=== PATIENT | female | born 2000 | race Two or more races ===

== ENCOUNTER 2018-02-20 22:16 | Outpatient (CLI) | payer OTHER ==
[2018-02-20] MEDS ORDERED: PRENATAL TABLE1 EAC1 PO (22:36)
[2018-02-20] MEDS ORDERED: PEPCID20 MG PO (22:37)
[2018-02-20] MEDS ORDERED: ZOFRAN8 MG PO (22:38)
[2018-02-21] MEDS ORDERED: MACROBID 100 M100 MG PO (16:14)
[2018-02-21] MEDS ORDERED: PROTONIX40 MG PO (16:14)
== END 2018-02-21 17:40 | disposition home or self-care (01) ==
LOC: LDR 22:16 → OBS/DEL 22:16 → LDR 22:19 → OBS/DEL 02-21 07:58
DX: O21.8 Other vomiting complicating pregnancy (principal); Z34.83 Encounter for supervision of other normal pregnancy, third trimester

== ENCOUNTER 2018-03-29 09:08 | Inpatient (IN) | payer OTHER ==
[~2018-03-29] VITALS: Ht 160 cm; Wt 71.7 kg
[~2018-03-29 09:08] MED LIST: MACROBID 100 M100 MG PO; PEPCID20 MG PO; PRENATAL TABLE1 EAC1 PO; PROTONIX40 MG PO; ZOFRAN8 MG PO
[2018-04-01] MEDS ORDERED: PREPLUS CA-FE1 EACH PO (15:18)
[2018-04-01] MEDS ORDERED: NAPR500T14 PO (15:18)
== END 2018-04-01 15:26 | DRG 766 ==
LOC: OB/GYN 09:08 → LDR 09:08 → O/R 09:08 → OB/GYN 17:52
PROVIDERS: Specialist
PROC: 4A033R1 Measurement of Arterial Saturation, Peripheral, Percutaneous Approach (ICD-10-PCS; 2018-03-29)
PROC: 4A1HXCZ Monitoring of Products of Conception, Cardiac Rate, External Approach (ICD-10-PCS; 2018-03-29)
PROC: 10D00Z1 Extraction of Products of Conception, Low, Open Approach (ICD-10-PCS; principal; 2018-03-29 17:00)
DX: O69.81X0 Labor and delivery complicated by cord around neck, without compression, not applicable or unspecified (principal); Z3A.36 36 weeks gestation of pregnancy; Z37.0 Single live birth

== ENCOUNTER 2023-12-12 21:16 | Emergency (ER) | payer OTHER ==
[~2023-12-12] VITALS: Ht 170.2 cm; Wt 83.5 kg
[~2023-12-12 21:16] MED LIST changes: +NAPR500T14 PO; +PREPLUS CA-FE1 EACH PO
[2023-12-12] MEDS ORDERED: KEPPRA750 MG PO (21:27)
[2023-12-12] MEDS ORDERED: JANTOVEN5 MG PO (21:27)
[2023-12-12] MEDS ORDERED: LACOSAMIDE10 MG/1 ML PO (21:27)
[2023-12-12 22:10] LABS: HEMATOCRIT 35.2 % (36.0-45.00); HEMOGLOBIN 12.3 g/dL (12.0-15.00); MEAN CELL VOLUME 90.7 fL (80.00-100.00); MEAN CORPUSCULAR HEMOGLOBIN 31.8 pg (27.00-32.0); PLATELET COUNT 237 K/uL (150-450); RED BLOOD COUNT 3.88 M/uL (4.00-6.00); RED CELL DISTRIBUTION WIDTH 12.6 % (11.5-14.5)
[2023-12-12 22:24] LABS: ABG PH 7.435 (7.35-7.45); ABG PO2 117.7 mmHg (80-100); ABG pCO2 34.4 mmHg (35-45); BICARBONATE 22.6 mmol/l (23-25); SaO2 98.7 %; Tco2 23.6 mmol/l; allen test SATISFACTORY; o2 21 %; puncture site RADIAL LEFT
[2023-12-12 22:25] LABS: ALBUMIN 3.8 gm/dL (3.4-5.0); ALKALINE PHOSPHATASE 73 U/L (50-136); ALT/SGPT 56 U/L (12-78); ANION GAP 11 (10.0-20.0); AST/SGOT 31 U/L (15-37); BILIRUBIN TOTAL 0.29 mg/dL (0.3-1.2); BLOOD UREA NITROGEN 9 mg/dL (7-18); BUN CREA RATIO 10 (7.0-25.0); CALCIUM 9.4 mg/dL (8.5-10.1); CARBON DIOXIDE 25 mEq/L (21-32); CHLORIDE 109 mmol/L (98-107); CREATININE SERUM 0.86 mg/dL (0.55-1.02); GLOBULINA 3.7 G/DL (2.4-3.5); GLUCOSE FASTING 124 mg/dL (65-100); OSMOLALITY SERUM 281 MOSM/KG (275-295); POTASSIUM 3.52 mEq/L (3.5-5.1); SODIUM 141 mmol/L (136-145); TOTAL PROTEIN 7.5 gm/dL (6.4-8.2)
[2023-12-12 22:26] LABS: HCG QUANTITATIVE < 1 mUI/mL (1-3)
[2023-12-12 22:30] LABS: INR 1.21; PROTHROMBIN TIME 12.5 SECONDS (9.0-11.5)
[2023-12-12 22:31] LABS: PARTIAL THROMBOPLASTIN TIME 39.6 SECONDS (22.0-34.0)
== END 2023-12-13 05:28 | disposition home or self-care (01) ==
LOC: ER 21:16
PROVIDERS: General Practice
DX: R07.9 Chest pain, unspecified (principal); Z86.718 Personal history of other venous thrombosis and embolism; Z20.822 Contact with and (suspected) exposure to COVID-19
CPT/HCPCS: 71260; 82803; 93005; 96365; 96366; 99284; J1885; J7030; Q9965

== ENCOUNTER 2023-12-26 10:10 | Emergency (ER) | payer OTHER ==
[~2023-12-26] VITALS: Ht 160 cm; Wt 83.0 kg
[~2023-12-26 10:10] MED LIST changes: +JANTOVEN5 MG PO; +KEPPRA750 MG PO; +LACOSAMIDE10 MG/1 ML PO
[2023-12-26] MEDS ORDERED: ONDANSETRON HCL 2 MG/ML VIAL IV ONE (10:45)
[2023-12-26] MEDS ORDERED: 0.9 % SODIUM CHLORIDE 1,000 ML IV SCH (10:45)
[2023-12-26] MEDS ORDERED: MEPERIDINE HCL/PF 50 MG/ML VIAL IM ONE (10:45)
[2023-12-26 11:08] LABS: HEMATOCRIT 35.2 % (36.0-45.00); HEMOGLOBIN 12.1 g/dL (12.0-15.00); MEAN CELL VOLUME 89.5 fL (80.00-100.00); MEAN CORPUSCULAR HEMOGLOBIN 30.8 pg (27.00-32.0); MEAN CORPUSCULAR HGB CONC 34.3 g/dl (32.0-36.0); PLATELET COUNT 226 K/uL (150-450); RED BLOOD COUNT 3.94 M/uL (4.00-6.00); RED CELL DISTRIBUTION WIDTH 12.5 % (11.5-14.5)
[2023-12-26 11:39] LABS: INR 1.61; PARTIAL THROMBOPLASTIN TIME 48.2 SECONDS (22.0-34.0); PROTHROMBIN TIME 16.3 SECONDS (9.0-11.5)
[2023-12-26 11:47] LABS: ALKALINE PHOSPHATASE 69 U/L (50-136); ALT/SGPT 45 U/L (12-78); ANION GAP 6 (10.0-20.0); AST/SGOT 22 U/L (15-37); BILIRUBIN TOTAL 0.19 mg/dL (0.3-1.2); BLOOD UREA NITROGEN 12 mg/dL (7-18); BUN CREA RATIO 17 (7.0-25.0); CALCIUM 9.6 mg/dL (8.5-10.1); CARBON DIOXIDE 28 mEq/L (21-32); CHLORIDE 109 mmol/L (98-107); CREATININE SERUM 0.72 mg/dL (0.55-1.02); GFR 98.69; GLOBULINA 3.7 G/DL (2.4-3.5); GLUCOSE FASTING 100 mg/dL (65-100); OSMOLALITY SERUM 277 MOSM/KG (275-295); POTASSIUM 4.44 mEq/L (3.5-5.1); SODIUM 139 mmol/L (136-145); TOTAL PROTEIN 7.7 gm/dL (6.4-8.2)
[2023-12-26 11:49] LABS: HCG QUANTITATIVE < 1 mUI/mL (1-3)
== END 2023-12-26 14:15 | disposition home or self-care (01) ==
LOC: ER
PROVIDERS: General Practice
DX: N93.8 Other specified abnormal uterine and vaginal bleeding (principal)
CPT/HCPCS: 36415; 76830; 96365; 96366; 96372; 99284; J2405; J3490; J7030